=== PATIENT | female | born 1980 | race African-American/Black ===

== ENCOUNTER 2018-02-16 20:25 | Emergency (ER) | payer OTHER ==
[2018-02-16 20:43] VITALS: TEMP 98.5; BMI 19.0
[2018-02-16] MEDS ORDERED: EPINEPHrine 1:1,000 0.3 MG/0.3 ML SYR IM ONE (20:44)
[2018-02-16] MEDS ORDERED: FAMOTIDINE 20 MG/50 ML IVPB 20 MG/50 ML MG IVPB ONE (20:44)
[2018-02-16] MEDS ORDERED: methylPREDNISolone NA SUCC 125 MG/2 ML VIAL IVPUSH ONE (20:44)
[2018-02-16 20:52] LABS: HEMOGLOBIN 12.9 GM/dL (10.7-15.3); MCH 30.4 pg (25.7-33.7); MCHC 33.1 g/dl (32.0-36.0); MEAN CELL VOLUME 91.7 fl (80-96); PLATELET COUNT 286 K/MM3 (134-434); RBC 4.26 M/mm3 (3.60-5.2); RDW 12.3 % (11.6-15.6); WHITE BLOOD COUNT 8.5 K/mm3 (4.0-10.0)
--- NOTE | 2018-02-16 20:53 | PDOC ---
History of Present Illness - General Chief Complaint: Allergic Reaction Stated Complaint: ALLERGIC REACTION Time Seen by Provider: 02/16/18 20:37 History Source: Patient Exam Limitations: No Limitations - History of Present Illness Initial Comments: 02/16/18 20:47 Patient is a 37-year-old female with history of asthma, ALLERGY to shellfish here with complaints of "I can't breathe". Patient states she was at a wedding and had salmonwhich she has had in the past, and few minutes later started having a feeling of tightness in her throat and swelling to her eyelids, and redness to her hands. Patient was seen immediately due to symptoms. PMD: does not remember name PMHX: As above PSOCHX: Occ ETOH, ALL: NKDA GENERAL/CONSTITUTIONAL: [No fever or chills. No weakness. No weight change.] HEAD, EYES, EARS, NOSE AND THROAT: [No change in vision. No ear pain or discharge. No sore throat.] CARDIOVASCULAR: [No chest pain or shortness of breath.] RESPIRATORY: (+) cough, (+) wheezing, or hemoptysis.] GASTROINTESTINAL: [No nausea, vomiting, diarrhea or constipation. No rectal bleeding.] GENITOURINARY: [No dysuria, frequency, or change in urination.] MUSCULOSKELETAL: [No joint or muscle swelling or pain. No neck or back pain.] SKIN AND BREASTS: [No rash or easy bruising.] NEUROLOGIC: [No headache, vertigo, loss of consciousness, or loss of sensation.] PSYCHIATRIC: [No depression or anxiety.] ENDOCRINE: [No increased thirst. No abnormal weight change.] HEMATOLOGIC/LYMPHATIC: [No anemia, easy bleeding, or history of blood clots.] ALLERGIC/IMMUNOLOGIC: (+) hives or skin allergy. No latex allergy.] GENERAL: [The patient is awake, alert, and fully oriented, in acute distress, coughing.] HEAD: [Normal with no signs of trauma.] EYES: [Pupils equal, round and reactive to light, extraocular movements intact, sclera anicteric, conjunctiva clear, Lid swelling, (+) tearing] ENT: [Ears normal, nares patent, oropharynx clear without exudates, midline no swelling, no tongue swelling. Moist mucous membranes.] NECK: [Normal range of motion, supple without lymphadenopathy, JVD, or masses.] LUNGS: [Breath sounds equal, clear to auscultation bilaterally. No wheezes, and no crackles.] HEART: [Regular rate and rhythm, normal S1 and S2 without murmur, rub.] ABDOMEN: [Soft, nontender, normoactive bowel sounds. No guarding, no rebound. No masses.] EXTREMITIES: [Normal range of motion, no edema. No clubbing or cyanosis. No cords, erythema, or tenderness.] NEUROLOGICAL: [Cranial nerves II through XII grossly intact. Normal speech, normal gait.] PSYCH: [Normal mood, normal affect.] SKIN: [Warm, Dry, normal turgor, (+) hives, (+) generalized erythema, (+) facial swelling] Past History - Past Medical History Allergies/Adverse Reactions: Allergies Allergy/AdvReac Type Severity Reaction Status Date / Time shellfish derived Allergy Severe Verified 02/16/18 20:58 Home Medications: Ambulatory Orders Diphenhydramine HCl [Benadryl -] 50 mg PO Q6H #16 capsule 02/17/18 Famotidine [Pepcid] 20 mg PO DAILY #4 tablet 02/17/18 Prednisone [Deltasone] 20 mg PO DAILY #4 tablet 02/17/18 COPD: No - Suicide/Smoking/Psychosocial Hx Smoking History: Unknown if ever smoked *Physical Exam - Vital Signs Last Vital Signs Temp Pulse Resp BP Pulse Ox 98.5 F 126 H 20 125/91 99 02/16/18 20:42 02/16/18 20:42 02/16/18 20:42 02/16/18 20:42 02/16/18 20:42 ED Treatment Course - LABORATORY CBC & Chemistry Diagram: 02/16/18 20:45 02/16/18 20:45 Medical Decision Making - Medical Decision Making 02/16/18 20:47 Patient is a 37-year-old female with history of asthma, ALLERGY to shellfish here with complaints of "I can't breathe". after eating salmon at a wedding. On exam has eyelid and facial swelling suspicious for early anaphylactic reaction. Epinephrine 0.3mg IM given immediately Given Solu-Medrol 125 mg IV, Pepcid 20 mg IV, Benadryl 50 mg IV and IV fluids. Observe 02/16/18 21:14 Patient seems to improved, vital signs normalizing. Continue to observe 02/17/18 00:29 Patient states she feels improved, no SOB, no stridor Lungs are clear. Selected Entries 02/17/18 00:43 Temperature 98.5 F Pulse Rate [ 89 Right Radial] Respiratory 19 Rate Blood Pressure 97/58 L [Left Arm] O2 Sat by Pulse 100 Oximetry (%) I discussed the physical exam findings, ancillary test results and final diagnoses with the patient. I answered all of the patient's questions. The patient was satisfied with the care received and felt comfortable with the discharge plan and treatment plan. The Patient agrees to follow up with the primary care physician within 24-72 hours. *DC/Admit/Observation/Transfer Diagnosis at time of Disposition: Allergic reaction Qualifiers: Encounter type: initial encounter Qualified Code(s): T78.40XA - Allergy, unspecified, initial encounter - Discharge Dispostion Disposition: HOME Condition at time of disposition: Stable - Prescriptions Prescriptions: Diphenhydramine HCl [Benadryl -] 50 mg PO Q6H #16 capsule Famotidine [Pepcid] 20 mg PO DAILY #4 tablet Prednisone [Deltasone] 20 mg PO DAILY #4 tablet - Referrals Referrals: ON STAFF,NOT [Primary Care Provider] - - Patient Instructions Printed Discharge Instructions: DI for General Allergic Reactions Additional Instructions: Your Discharge Instructions: You must call primary care physician within 24 hours to arrange follow-up. Return to the Emergency Department with any new, persistent or worsening symptoms, for fever, chills, SOB, dizziness or any other concerning changes that may occur. Numerous continue the Benadryl every 6 hours, prednisone daily, Pepcid daily for the next 3 days. - Post Discharge Activity Forms/Work/School Notes: Back to Work
[2018-02-16 21:28] LABS: ANION GAP 15 MMOL/L (8-16); BLOOD UREA NITROGEN 15 mg/dL (7-18); CALCIUM 8.6 mg/dL (8.5-10.1); CHLORIDE 106 mmol/L (98-107); CO2 18 mmol/L (21-32); CREATININE 1.2 mg/dL (0.55-1.3); GLUCOSE,RANDOM 105 mg/dL (74-106); POTASSIUM 3.8 mmol/L (3.5-5.1); SODIUM 140 mmol/L (136-145)
[2018-02-17 00:47] VITALS: BP 97/58; PULSE 89
== END 2018-02-17 00:58 | disposition home or self-care (01) ==
LOC: JER 20:25
PROC: 3E033GC Introduction of Other Therapeutic Substance into Peripheral Vein, Percutaneous Approach (ICD-10-PCS; principal; 2018-02-16)
PROC: 3E033GC Introduction of Other Therapeutic Substance into Peripheral Vein, Percutaneous Approach (ICD-10-PCS; 2018-02-16)
PROC: 3E0333Z Introduction of Anti-inflammatory into Peripheral Vein, Percutaneous Approach (ICD-10-PCS; 2018-02-16)
PROC: 3E023GC Introduction of Other Therapeutic Substance into Muscle, Percutaneous Approach (ICD-10-PCS; 2018-02-16)
DX: L50.0 Allergic urticaria (principal); T78.40XA Allergy, unspecified, initial encounter
CPT/HCPCS: 36415; 80048; 80307; 85027; 99282-25